=== PATIENT | female | born 1985 | race African-American/Black ===

== ENCOUNTER 2020-01-10 10:52 | Emergency (ER) | payer OTHER ==
[~2020-01-10] VITALS: Ht 160 cm; Wt 68.0 kg
[2020-01-10 11:56] LABS: ABSOLUTE NEUTROPHILS 1.4 thou/uL (1.4-8.2); BASOPHILS 2.6 % (0.0-2.0); EOSINOPHILS 0.7 % (0.0-3.0); HEMATOCRIT 43.2 % (37.0-47.0); HEMOGLOBIN 14.2 gm/dL (12.0-15.0); LYMPHOCYTES 56.9 % (24.0-44.0); MCH 28.9 pg (26.0-34.0); MCHC 32.9 g/dL (28.0-37.0); MCV 87.9 fL (80.0-100.0); MONOCYTES 11.5 % (1.0-8.0); PLATELET COUNT 181 thou/uL (150-400); POLYS 28.3 % (36.0-66.0); RBC 4.92 mil/uL (4.20-5.00); RDW 18.6 % (10.5-14.5); WBC 4.9 thou/uL (4.0-11.0)
[2020-01-10 12:13] LABS: ANION GAP 10 mmol/L (7-16); BUN 1 mg/dL (7-18); CALCIUM 8.3 mg/dL (8.5-10.1); CHLORIDE 105 mmol/L (98-107); CO2 27 mmol/L (21-32); CREATININE 0.6 mg/dL (0.6-1.0); GLUCOSE 107 mg/dL (74-106); POTASSIUM 3.1 mmol/L (3.5-5.1); SODIUM 142 mmol/L (136-145)
[2020-01-10 12:21] LABS: TROPONIN-I <0.06 ng/mL (<0.06)
[2020-01-10 12:41] LABS: ANISOCYTOSIS 1+; PLATELET ESTIMATE NORMAL
[2020-01-10] MEDS ORDERED: TRAZODONE HCL50 MG PO (15:15)
[2020-01-10] MEDS ORDERED: NORVASC5 M1 PO (15:16)
[2020-01-10] MEDS ORDERED: HYDROCHLOROTHIA25 M2 PO (15:16)
[2020-01-10] MEDS ORDERED: ZANAFLEX4 MG PO (15:16)
[2020-01-10] MEDS ORDERED: LIPITOR40 MG PO (15:17)
[2020-01-10] MEDS ORDERED: PRAZOSIN 1 MG CA1 M1 PO (15:17)
[2020-01-10] MEDS ORDERED: HYDROXYZINE HCL50 MG PO (15:18)
[2020-01-10] MEDS ORDERED: SEROQUEL300 MG PO (15:18)
[2020-01-10] MEDS ORDERED: IBUPROFEN 800800 M1 PO (15:18)
[2020-01-10 15:25] VITALS: BP 114/52
[2020-01-10] MEDS ORDERED: PROAIR HFA8.5 GM INH (15:25)
--- NOTE | 2020-01-10 16:19 | EKG ---
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 : 1985 Requested By: Al Echeverria Order Number: [id number] MD: Jerry Bermeo Measurements Intervals [place] Rate: 82 P: 68 [place]: 156 QRS: 66 QRSD: 85 T: 72 QT: 439 QTc: 513 Interpretive Statements Sinus rhythm Nonspecific T abnrm, anterolateral leads ST elev, probable normal early repol pattern Prolonged QT interval Compared to ECG 01/14/2010 01:35:05 ST (T wave) deviation now present Prolonged QT interval now present Electronically Signed On 01-10-2020 16:18:59 CDT by Jerry Bermeo [email or web address] <ELECTRONICALLY SIGNED> By: Jerry Bermeo MD, FACC 01/10/20 1618 18 Jerry Bermeo MD, FACC /EPI
== END 2020-01-10 15:26 | disposition home or self-care (01) ==
LOC: ER 10:52
PROVIDERS: Emergency Medicine
DX: R07.89 Other chest pain (principal); R11.2 Nausea with vomiting, unspecified; I10 Essential (primary) hypertension; J45.909 Unspecified asthma, uncomplicated; Z79.899 Other long term (current) drug therapy; Z88.0 Allergy status to penicillin; Z20.828 Contact with and (suspected) exposure to other viral communicable diseases

== ENCOUNTER 2020-01-31 19:50 | Emergency (ER) | payer OTHER ==
[~2020-01-31] VITALS: Ht 160 cm; Wt 54.4 kg
[~2020-01-31 19:50] MED LIST: HYDROCHLOROTHIA25 M2 PO; HYDROXYZINE HCL50 MG PO; IBUPROFEN 800800 M1 PO; LIPITOR40 MG PO; NORVASC5 M1 PO; PRAZOSIN 1 MG CA1 M1 PO; PROAIR HFA8.5 GM INH; SEROQUEL300 MG PO; TRAZODONE HCL50 MG PO; ZANAFLEX4 MG PO
[2020-01-31 20:55] LABS: ABSOLUTE NEUTROPHILS 2.3 thou/uL (1.4-8.2); BASOPHILS 1.8 % (0.0-2.0); EOSINOPHILS 1.3 % (0.0-3.0); HEMATOCRIT 35.5 % (37.0-47.0); HEMOGLOBIN 11.5 gm/dL (12.0-15.0); LYMPHOCYTES 46.3 % (24.0-44.0); MCH 29.9 pg (26.0-34.0); MCHC 32.5 g/dL (28.0-37.0); MCV 92.2 fL (80.0-100.0); MONOCYTES 11.2 % (1.0-8.0); PLATELET COUNT 119 thou/uL (150-400); POLYS 39.4 % (36.0-66.0); RBC 3.86 mil/uL (4.20-5.00); RDW 21.3 % (10.5-14.5); WBC 5.9 thou/uL (4.0-11.0)
[2020-01-31 21:02] LABS: ANION GAP 13 mmol/L (7-16); BUN 2 mg/dL (7-18); CHLORIDE 103 mmol/L (98-107); CO2 24 mmol/L (21-32); CREATININE 0.7 mg/dL (0.6-1.0); GLUCOSE 114 mg/dL (74-106); POTASSIUM 3.1 mmol/L (3.5-5.1); SODIUM 140 mmol/L (136-145)
[2020-01-31 21:10] LABS: TROPONIN-I <0.06 ng/mL (<0.06)
[2020-01-31 23:04] VITALS: BP 115/67
--- NOTE | 2020-02-01 07:37 | EKG ---
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[facility] : 1985 Requested By: Pepito Klein Order Number: [id number] MD: Buddy Small Measurements Intervals [place] Rate: 84 P: 64 [place]: 168 QRS: 61 QRSD: 77 T: 59 QT: 435 QTc: 515 Interpretive Statements Sinus rhythm ST segment elevation, probably early repolarization Poor R wave progression Prolonged QT interval Compared to ECG 01/10/2020 12:19:23 No significant change was found Electronically Signed On 02-01-2020 7:36:47 INFORMATION SYSTEMS ADMINISTRATOR by Buddy Small [email or web address] <ELECTRONICALLY SIGNED> By: Buddy Small MD, FACC 02/01/20 0736 09 09 Buddy Small MD, FAC /EPI
== END 2020-01-31 23:00 | disposition home or self-care (01) ==
LOC: ER 19:50
PROVIDERS: Emergency Medicine
DX: R07.89 Other chest pain (principal); R05 Cough; R06.02 Shortness of breath; J45.909 Unspecified asthma, uncomplicated; I10 Essential (primary) hypertension; F41.0 Panic disorder [episodic paroxysmal anxiety]; F17.210 Nicotine dependence, cigarettes, uncomplicated; Z79.899 Other long term (current) drug therapy; Z88.0 Allergy status to penicillin

== ENCOUNTER 2020-02-09 06:44 | Emergency (ER) | payer OTHER ==
[~2020-02-09] VITALS: Ht 160 cm; Wt 63.5 kg
--- NOTE | ~2020-02-09 | EKG ---
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: : 1985 Requested By: Al Echeverria Order Number: [id number] MD: Measurements Intervals [place] Rate: 131 P: 59 [place]: 114 QRS: 71 QRSD: 81 T: 62 QT: 315 QTc: 465 Interpretive Statements Sinus tachycardia Anteroseptal infarct, old Artifact in lead(s) I,III,aVL,aVF,V1,V2,V3,V4,V5,V6 Compared to ECG 01/31/2020 21:10:44 Myocardial infarct finding now present Sinus rhythm no longer present ST (T wave) deviation no longer present Early repolarization no longer present Poor R-wave progression no longer present Prolonged QT interval no longer present [email or web address] By: 3 3 Epiphany EpiphanyMD /JAZZ
[2020-02-09 07:16] LABS: ABSOLUTE NEUTROPHILS 4.5 thou/uL (1.4-8.2); BASOPHILS 1.5 % (0.0-2.0); EOSINOPHILS 0.4 % (0.0-3.0); HEMATOCRIT 40.5 % (37.0-47.0); HEMOGLOBIN 12.9 gm/dL (12.0-15.0); LYMPHOCYTES 34.4 % (24.0-44.0); MCH 30.3 pg (26.0-34.0); MCHC 31.9 g/dL (28.0-37.0); MCV 94.8 fL (80.0-100.0); MONOCYTES 9.2 % (1.0-8.0); PLATELET COUNT 204 thou/uL (150-400); POLYS 54.5 % (36.0-66.0); RBC 4.27 mil/uL (4.20-5.00); RDW 20.9 % (10.5-14.5); WBC 8.3 thou/uL (4.0-11.0)
[2020-02-09 08:30] LABS: CALCIUM 7.4 mg/dL (8.5-10.1); CREATININE 0.6 mg/dL (0.6-1.0)
[2020-02-09 08:37] LABS: POTASSIUM 5.1 mmol/L (3.5-5.1)
[2020-02-09 09:33] LABS: ANISOCYTOSIS 1+; TARGET CELLS 1+
[2020-02-09 10:20] VITALS: BP 95/42
== END 2020-02-09 10:21 | disposition home or self-care (01) ==
LOC: ER 06:44
PROVIDERS: Emergency Medicine
DX: F16.129 Hallucinogen abuse with intoxication, unspecified (principal); R07.89 Other chest pain; R45.86 Emotional lability; F10.920 Alcohol use, unspecified with intoxication, uncomplicated; J45.909 Unspecified asthma, uncomplicated; F41.9 Anxiety disorder, unspecified; I10 Essential (primary) hypertension; F17.210 Nicotine dependence, cigarettes, uncomplicated; Z79.899 Other long term (current) drug therapy; Z88.8 Allergy status to other drugs, medicaments and biological substances; Z88.0 Allergy status to penicillin